=== PATIENT | male | born 1955 | race African-American/Black ===

== ENCOUNTER 2016-09-10 16:15 | Observation (INO) | payer OTHER ==
[~2016-09-10] VITALS: Ht 177.8 cm; Wt 125.0 kg
[~2016-09-10 16:15] MED LIST: AMLO10 PO; GLUC10TA3 PO; GLUCTAB PO; MAXZ PO; METO100T PO; NYST100010 TOP; SIMV20 PO; SULF1TAB47 PO
[2016-09-10 16:17] VITALS: BP 163/105; PULSE 90; RESP 14; TEMP 98; O2SAT 94
--- NOTE | 2016-09-10 17:42 | PD ---
HPI Chief Complaint: Edema Time Seen by Provider: 17:42 Travel History International Travel<30 days: No Contact w/Intl Traveler<30days: No Traveled to known affect area: No History of Present Illness HPI 60-year-old male with history of CAD, COPD, hypertension, presents to emergency department for evaluation of lower extremity swelling with worsening shortness of breath over the last week. Patient states that he was at the [facility] for a routine exam when they sent him to the emergency department for further evaluation. Patient states that about a week ago as they began to swell. He has noticed increased shortness of breath with activity. He states that he wakes up at night and sits up in order to catch his breath. Denies any recent illnesses, fever, or chills. He has no other symptoms to report at this time. PFSH Past Medical History Hx Anticoagulant Therapy: Yes (ASA 81MG) Arthritis: No Asthma: No Autoimmune Disease: No Blood Disorders: No Depression: No Heart Rhythm Problems: No Cancer: No Cardiovascular Problems: Yes (HTN) High Cholesterol: Yes (HIGH LIPIDS) Chemotherapy: No Chest Pain: No Congestive Heart Failure: No COPD: Yes Cerebrovascular Accident: No Diabetes: Yes Endocrine: No Gastrointestinal Disorders: No GERD: No Glaucoma: No Genitourinary: No Headaches: No Hepatitis: No Hiatal Hernia: No Hypertension: Yes (HYPERTENSION) Immune Disorder: No Kidney Stones: No Musculoskeletal: No Neurologic: No Psychiatric: No Reproductive: No Respiratory: No Migraines: No Myocardial Infarction: No Radiation Therapy: No Renal Failure: No Seizures: No Sickle Cell Disease: No Sleep Apnea: No Thyroid Disease: Yes (THYROIDECTOMY GOITER REMOVED) Ulcer: No Past Surgical History Abdominal Surgery: Yes (CHOLYCYSTECTOMY) AICD: No Appendectomy: No Arteriovenous Shunt: No Cardiac Surgery: No Cholecystectomy: Yes Ear Surgery: No Endocrine Surgery: No Eye Surgery: No Genitourinary Surgery: No Gynecologic Surgery: No Insulin Pump: No Joint Replacement: Yes (LEFT HIP REPLACEMENT) Oral Surgery: No Pacemaker: No Thoracic Surgery: No Social History Alcohol Use: No Tobacco Use: No Substance Use: No Allergies-Medications (Allergen,Severity, Reaction): Coded Allergies: Lisinopril (Verified Allergy, Severe, SWELLING, 09/10/16) Reported Meds & Prescriptions Reported Meds & Active Scripts Active Reported Zocor (Simvastatin) 20 Mg Tab 20 Mg PO HS Metoprolol Tartrate 100 Mg Tab 100 Mg PO BID Metformin ER (Metformin HCl) 500 Mg Maggie 500 Mg PO BID With evening meal Glipizide 10 Mg Tab 10 Mg PO DAILY Take 30 minutes before a meal Norvasc (Amlodipine Besylate) 10 Mg Tab 10 Mg PO DAILY Review of Systems Except as stated in HPI: all other systems reviewed are Neg Physical Exam Narrative GENERAL: Well-nourished male patient in no acute distress SKIN: Warm and dry. HEAD: Atraumatic. Normocephalic. EYES: Pupils equal and round. No scleral icterus. No injection or drainage. ENT: No nasal bleeding or discharge. Mucous membranes pink and moist. NECK: Trachea midline. No JVD. CARDIOVASCULAR: Regular rate and rhythm. No murmur appreciated. RESPIRATORY: No accessory muscle use. Clear to auscultation. Breath sounds equal bilaterally. GASTROINTESTINAL: Abdomen soft, non-tender, nondistended. Hepatic and splenic margins not palpable. MUSCULOSKELETAL: No obvious deformities. No clubbing. No cyanosis. 2+ bilateral lower extremity edema NEUROLOGICAL: Awake and alert. No obvious cranial nerve deficits. Motor grossly within normal limits. Normal speech. PSYCHIATRIC: Appropriate mood and affect; insight and judgment normal. Data Data Last Documented VS Vital Signs Date Time Temp Pulse Resp B/P Pulse Ox O2 Delivery O2 Flow Rate FiO2 09/10/16 20:44 90 16 98 Room Air 09/10/16 16:17 98.0 163/105 Orders Electrocardiogram (09/10/16 17:41) Basic Metabolic Panel (Bmp) (09/10/16 17:41) B-Type Natriuretic Peptide (09/10/16 17:41) Ckmb (Isoenzyme) Profile (09/10/16 17:41) Complete Blood Count With Diff (09/10/16 17:41) Magnesium (Mg) (09/10/16 17:41) Prothrombin Time / Inr (Pt) (09/10/16 17:41) Act Partial Throm Time (Ptt) (09/10/16 17:41) Troponin I (09/10/16 17:41) Chest, Single Ap (09/10/16 17:41) CKMB (09/10/16 18:41) CKMB% (09/10/16 18:41) Ecg Monitoring (09/10/16 20:21) Bilateral Bp Monitoring (09/10/16 20:21) Iv Access Insert/Monitor (09/10/16 20:21) Oximetry (09/10/16 20:21) Oxygen Administration (09/10/16 20:21) Sodium Chloride 0.9% Flush (Ns Flush) (09/10/16 20:30) Furosemide Inj (Lasix Inj) (09/10/16 20:30) Nitroglycerin 2% Oint (Nitroglycerin 2% (09/10/16 20:30) Diet Heart Healthy (09/11/16 Dinner) Labs Laboratory Tests Test 09/10/16 18:41 White Blood Count 8.0 TH/MM3 Red Blood Count 4.54 MIL/MM3 Hemoglobin 12.8 GM/DL Hematocrit 38.6 % Mean Corpuscular Volume 85.1 FL Mean Corpuscular Hemoglobin 28.3 PG Mean Corpuscular Hemoglobin 33.2 % Concent Red Cell Distribution Width 15.1 % Platelet Count 187 TH/MM3 Mean Platelet Volume 9.4 FL Neutrophils (%) (Auto) 66.8 % Lymphocytes (%) (Auto) 21.0 % Monocytes (%) (Auto) 9.7 % Eosinophils (%) (Auto) 2.3 % Basophils (%) (Auto) 0.2 % Neutrophils # (Auto) 5.3 TH/MM3 Lymphocytes # (Auto) 1.7 TH/MM3 Monocytes # (Auto) 0.8 TH/MM3 Eosinophils # (Auto) 0.2 TH/MM3 Basophils # (Auto) 0.0 TH/MM3 CBC Comment DIFF FINAL Differential Comment Prothrombin Time 11.3 SEC Prothromb Time International 1.0 RATIO Ratio Activated Partial 30.6 SEC Thromboplast Time Sodium Level 140 MEQ/L Potassium Level 3.7 MEQ/L Chloride Level 102 MEQ/L Carbon Dioxide Level 30.7 MEQ/L Anion Gap 7 MEQ/L Blood Urea Nitrogen 17 MG/DL Creatinine 1.14 MG/DL Estimat Glomerular Filtration 79 ML/MIN Rate Random Glucose 77 MG/DL Calcium Level 8.7 MG/DL Magnesium Level 1.9 MG/DL Total Creatine Kinase 657 U/L Creatine Kinase MB 4.4 NG/ML Creatine Kinase MB % 0.7 % Troponin I 0.06 NG/ML B-Type Natriuretic Peptide 302 PG/ML MDM Medical Decision Making Medical Screen Exam Complete: Yes Emergency Medical Condition: Yes Medical Record Reviewed: Yes Differential Diagnosis COPD exacerbation versus acute CHF versus ACS versus pneumonia versus influenza Narrative Course 60-year-old male presents to emergency department for evaluation. Workup was initiated in triage. Once a medical bed becomes available, patient will be transferred and care assumed by that provider. Condition: Stable Ashely Mendoza Sep 10, 2016 17:42
--- NOTE | 2016-09-10 18:49 | RADRPT ---
EXAM DATE/TIME: 09/10/2016 18:01 [place] COMPARISON: No previous studies available for comparison. INDICATIONS: Shortness of breath and bilateral feet swelling. MEDICAL HISTORY: None. SURGICAL HISTORY: None. ENCOUNTER: Initial ACUITY: 2 days PAIN SCORE: 0/10 LOCATION: Bilateral chest FINDINGS: The heart size is enlarged. The lungs are clear. No effusion is seen. There does appear to be some degenerative change at the right glenohumeral joint. CONCLUSION: Cardiomegaly. Oniel Corrales MD on September 10, 2016 at 18:35 Board Certified Radiologist. This report was verified electronically.
[2016-09-10 18:52] LABS: AUTOMATED NEUTROPHIL # 5.3 TH/MM3 (1.8-7.7); BASOPHIL % 0.2 % (0.0-2.0); EOSINOPHIL # 0.2 TH/MM3 (0-0.4); EOSINOPHIL % 2.3 % (0.0-4.0); HEMATOCRIT 38.6 % (39.0-51.0); HEMO FLAGS DIFF FINAL; LYMPHOCYTE # 1.7 TH/MM3 (1.0-4.8); MEAN CELL VOLUME 85.1 FL (80.0-100.0); MEAN CORPUSCULAR HEMOGLOBIN 28.3 PG (27.0-34.0); MEAN CORPUSCULAR HGB CONC 33.2 % (32.0-36.0); MONO % 9.7 % (0.0-8.0); NEUT % 66.8 % (16.0-70.0); PLATELET COUNT 187 TH/MM3 (150-450); RED BLOOD COUNT 4.54 MIL/MM3 (4.50-5.90); RED CELL DISTRIBUTION WIDTH 15.1 % (11.6-17.2)
[2016-09-10 19:04] LABS: APTT (PATIENT) 30.6 SEC (24.3-30.1); PROTHROMBIN TIME - PATIENT 11.3 SEC (9.8-11.6)
[2016-09-10 19:12] LABS: BICARBONATE 30.7 MEQ/L (21.0-32.0); MAGNESIUM 1.9 MG/DL (1.5-2.5); POTASSIUM 3.7 MEQ/L (3.5-5.1)
[2016-09-10 19:28] LABS: CKMB 4.4 NG/ML (0.5-3.6)
--- NOTE | 2016-09-10 20:28 | PD ---
Physical Exam Date Seen by Provider: Sep 10, 2016 Time Seen by Provider: 20:24 Narrative 60-year-old Afro[place] [facility], increased shortness of breath with exertion, and orthopnea over the past 7-10 days. Patient was seen in triage by Ashely CAMEJO, and EKG, cardiac labs, and proBNP were ordered. Chest x-ray was performed as well. She was moved to [place] [id number] and I assumed care of the patient. Data Data Last Documented VS Vital Signs Date Time Temp Pulse Resp B/P Pulse Ox O2 Delivery O2 Flow Rate FiO2 09/10/16 20:44 90 16 98 Room Air 09/10/16 16:17 98.0 163/105 Orders Electrocardiogram (09/10/16 17:41) Basic Metabolic Panel (Bmp) (09/10/16 17:41) B-Type Natriuretic Peptide (09/10/16 17:41) Ckmb (Isoenzyme) Profile (09/10/16 17:41) Complete Blood Count With Diff (09/10/16 17:41) Magnesium (Mg) (09/10/16 17:41) Prothrombin Time / Inr (Pt) (09/10/16 17:41) Act Partial Throm Time (Ptt) (09/10/16 17:41) Troponin I (09/10/16 17:41) Chest, Single Ap (09/10/16 17:41) CKMB (09/10/16 18:41) CKMB% (09/10/16 18:41) Ecg Monitoring (09/10/16 20:21) Bilateral Bp Monitoring (09/10/16 20:21) Iv Access Insert/Monitor (09/10/16 20:21) Oximetry (09/10/16 20:21) Oxygen Administration (09/10/16 20:21) Sodium Chloride 0.9% Flush (Ns Flush) (09/10/16 20:30) Furosemide Inj (Lasix Inj) (09/10/16 20:30) Nitroglycerin 2% Oint (Nitroglycerin 2% (09/10/16 20:30) Diet Heart Healthy (09/11/16 Dinner) Admit Order (Ed Use Only) (09/10/16 21:10) Labs Laboratory Tests Test 09/10/16 18:41 White Blood Count 8.0 TH/MM3 Red Blood Count 4.54 MIL/MM3 Hemoglobin 12.8 GM/DL Hematocrit 38.6 % Mean Corpuscular Volume 85.1 FL Mean Corpuscular Hemoglobin 28.3 PG Mean Corpuscular Hemoglobin 33.2 % Concent Red Cell Distribution Width 15.1 % Platelet Count 187 TH/MM3 Mean Platelet Volume 9.4 FL Neutrophils (%) (Auto) 66.8 % Lymphocytes (%) (Auto) 21.0 % Monocytes (%) (Auto) 9.7 % Eosinophils (%) (Auto) 2.3 % Basophils (%) (Auto) 0.2 % Neutrophils # (Auto) 5.3 TH/MM3 Lymphocytes # (Auto) 1.7 TH/MM3 Monocytes # (Auto) 0.8 TH/MM3 Eosinophils # (Auto) 0.2 TH/MM3 Basophils # (Auto) 0.0 TH/MM3 CBC Comment DIFF FINAL Differential Comment Prothrombin Time 11.3 SEC Prothromb Time International 1.0 RATIO Ratio Activated Partial 30.6 SEC Thromboplast Time Sodium Level 140 MEQ/L Potassium Level 3.7 MEQ/L Chloride Level 102 MEQ/L Carbon Dioxide Level 30.7 MEQ/L Anion Gap 7 MEQ/L Blood Urea Nitrogen 17 MG/DL Creatinine 1.14 MG/DL Estimat Glomerular Filtration 79 ML/MIN Rate Random Glucose 77 MG/DL Calcium Level 8.7 MG/DL Magnesium Level 1.9 MG/DL Total Creatine Kinase 657 U/L Creatine Kinase MB 4.4 NG/ML Creatine Kinase MB % 0.7 % Troponin I 0.06 NG/ML B-Type Natriuretic Peptide 302 PG/ML [facility] Medical Record Reviewed: Yes Supervised Visit with YEN: Yes Differential Diagnosis CHF. Fluid overload. Renal insufficiency. Cardiac syndrome. Narrative Course Patient is medically stable at time of exam. EKG is reviewed showing sinus rhythm at [address] changes. Labs are reviewed showing CBC with mild anemia with hemoglobin 12.8 and hematocrit of 38.6. Electrolytes normal. Creatinine kinase Elevated at 657. CK-MB Is Elevated at 4.4. Troponin Is Slightly Elevated 0.06. BNP Is 302. Coags show PT of 11.3, INR 1.0, PTT 30.6. Patient discussed with Dr. Wood. IV is ordered, and patient is given 40 mg Lasix IV as well as 1 inch of nitroglycerin paste. Call is placed to the hospitalist at 2030 hrs. Patient is felt to be stable at this time. Patient discussed with Dr. Sebastian. Patient will be admitted under Dr. Smith to observation. Diagnosis Primary Impression: Elevated troponin Additional Impressions: SOB (shortness of breath) on exertion Pedal edema Admitting Information Admitting Physician Requests: Admit Condition: Stable Lazaro Ocasio Sep 10, 2016 20:28
[2016-09-10] MEDS ORDERED: SODIUM CHLORIDE 0.9% FLUSH 5 ML FLUSH IVF PRN (20:30)
[2016-09-10] MEDS ORDERED: NITROGLYCERIN 2% OINT 1 GM PACKET TOP ONE (20:30)
[2016-09-10] MEDS ORDERED: FUROSEMIDE 40 MG/4 ML VIAL IV PUSH ONE (20:30)
[2016-09-10] MEDS ORDERED: GLIP10TA6 PO (20:44)
[2016-09-10] MEDS ORDERED: METO100T PO (20:44)
[2016-09-10] MEDS ORDERED: ZOCO20TA PO (20:44)
[2016-09-10] MEDS ORDERED: METF500T4 PO (20:44)
[2016-09-10] MEDS ORDERED: AMLO10 PO (20:44)
[2016-09-10 21:20] VITALS: BP 140/84; PULSE 77; RESP 16; O2SAT 96
[2016-09-10] MEDS ORDERED: BISACODYL 10 MG SUPP PR PRN (21:30)
[2016-09-10] MEDS ORDERED: NALOXONE HCL 0.4 MG/ML AMP IV PRN (21:30)
[2016-09-10] MEDS ORDERED: SODIUM CHLORIDE 0.9% FLUSH 5 ML FLUSH FLUSH PRN (21:30)
[2016-09-10] MEDS ORDERED: ENOXAPARIN SODIUM 40 MG/0.4 ML SYRINGE SQ SCH (21:30)
[2016-09-10] MEDS ORDERED: ACETAMINOPHEN 325 MG TAB PO PRN (21:30)
[2016-09-10] MEDS: NITROGLYCERIN 2% OINT 1 GM PACKET TOPICAL SCH (22:00)
--- NOTE | 2016-09-10 22:01 | HHI.HP ---
HPI Service CP Hospitalists Primary Care Physician [facility] Admission Diagnosis elevated troponin/pedal edema Chief Complaint: Patient sent by [place] for lower extremity edema Travel History International Travel<30 Days: No Contact w/Intl Traveler <30 Da: No Traveled to Known Affected Are: No History of Present Illness 60 y/o black male with hx of CAD,COPD,hypertension,diabetes who has had for last 10 days increasing edema lower extremities and has had some shortness of breath but not severe ,denies any chest pain ,nausea or vomit. Patient states at one time was on diuretic but they were stopped about 1 year ago. On evaluation in er found to have elevated troponin level and CPK ekg showed no acute changes and had elevated BNP ,patient will be admitted for diuresis and follow up labs and as he has cardiac history will get cardiac consult and 2d echo . For now no angel as he had allergic reaction and i am not sure if he had any problems with ARB. Review of Systems Respiratory: COMPLAINS OF: Shortness of breath Cardiovascular: COMPLAINS OF: Lower Extremity Edema Past Family Social History Past Medical History hypertension,hyperlipidemia,COPD,diabetes CAD Past Surgical History thyroidectomy for goiter,gallbladder left hip Reported Medications zocor 20,metoprolol 100 bid,metformin 500 bid glipizide 10,norvasc 10 Allergies: Coded Allergies: Lisinopril (Verified Allergy, Severe, SWELLING, 09/10/16) Social History NS,ND Physical Exam Vital Signs Vital Signs Date Time Temp Pulse Resp B/P Pulse Ox O2 Delivery O2 Flow Rate FiO2 09/10/16 20:44 90 16 98 Room Air 09/10/16 16:17 98.0 90 14 163/105 94 Room Air Physical Exam GENERAL: This is a well-nourished, well-developed patient, in no apparent distress. SKIN: No rashes, ecchymoses or lesions. Cool and dry. HEAD: Atraumatic. Normocephalic. No temporal or scalp tenderness. EYES: Pupils equal round and reactive. Extraocular motions intact. No scleral icterus. No injection or drainage. ENT: Nose without bleeding, purulent drainage or septal hematoma. Throat without erythema, tonsillar hypertrophy or exudate. Uvula midline. Airway patent. NECK: Trachea midline. No JVD or lymphadenopathy. Supple, nontender, no meningeal signs. CARDIOVASCULAR: Regular rate and rhythm without murmurs, gallops, or rubs. RESPIRATORY: Clear to auscultation. Breath sounds equal bilaterally. No wheezes , rales, or rhonchi. GASTROINTESTINAL: Abdomen soft, non-tender, nondistended. No hepato-splenomegaly , or palpable masses. No guarding. MUSCULOSKELETAL: Extremities without clubbing, cyanosis, plus 2-3 edema. No joint tenderness, effusion, or edema noted. No calf tenderness. Negative Homans sign bilaterally. NEUROLOGICAL: Awake and alert. Cranial nerves II through XII intact. Motor and sensory grossly within normal limits. Five out of 5 muscle strength in all muscle groups. Normal speech. Laboratory Laboratory Tests Test 09/10/16 18:41 White Blood Count 8.0 Red Blood Count 4.54 Hemoglobin 12.8 Hematocrit 38.6 Mean Corpuscular Volume 85.1 Mean Corpuscular Hemoglobin 28.3 Mean Corpuscular Hemoglobin 33.2 Concent Red Cell Distribution Width 15.1 Platelet Count 187 Mean Platelet Volume 9.4 Neutrophils (%) (Auto) 66.8 Lymphocytes (%) (Auto) 21.0 Monocytes (%) (Auto) 9.7 Eosinophils (%) (Auto) 2.3 Basophils (%) (Auto) 0.2 Neutrophils # (Auto) 5.3 Lymphocytes # (Auto) 1.7 Monocytes # (Auto) 0.8 Eosinophils # (Auto) 0.2 Basophils # (Auto) 0.0 CBC Comment DIFF FINAL Differential Comment Prothrombin Time 11.3 Prothromb Time International 1.0 Ratio Activated Partial 30.6 Thromboplast Time Sodium Level 140 Potassium Level 3.7 Chloride Level 102 Carbon Dioxide Level 30.7 Anion Gap 7 Blood Urea Nitrogen 17 Creatinine 1.14 Estimat Glomerular Filtration 79 Rate Random Glucose 77 Calcium Level 8.7 Magnesium Level 1.9 Total Creatine Kinase 657 Creatine Kinase MB 4.4 Creatine Kinase MB % 0.7 Troponin I 0.06 B-Type Natriuretic Peptide 302 Result Diagram: 09/10/16 1841 09/10/16 1841 Imaging Last 24 hours Impressions Chest X-Ray 09/10/16 1741 Signed Impressions: Service Date/Time: Saturday, September 10, 2016 18:01 - CONCLUSION: Cardiomegaly. Oniel Corrales MD Course in er will receive lasix 40mg IV and NTG paste ekg NSR non specific st t wave changes Assessment and Plan Problem List: (1) Pedal edema Status: Acute Plan: progressive over 1 week or so continue lasix for 3 doses follow lyismael 2decho recheck bnp (2) Elevated troponin Status: Acute Plan: will recheck levels and ekg and will get cardiac consult am continue NTG paste for now (3) SOB (shortness of breath) on exertion Status: Chronic Plan: seems to be more chronic obtain 2d echo (4) Hypertension Status: Chronic Plan: continue home meds (5) Diabetes Status: Chronic Plan: continue home meds Assessment and Plan further plan as case progresses Code Status full Discussed Condition With patient and Truman Sebastian MD Sep 10, 2016 22:01
[2016-09-10 22:24] VITALS: BP 153/89; PULSE 73; RESP 14; O2SAT 92
[2016-09-10 23:54] VITALS: BP 144/91; PULSE 79; RESP 18; TEMP 98.6; O2SAT 98
[2016-09-11 00:21] VITALS: PULSE 78
[2016-09-11 03:03] VITALS: BP 143/88; PULSE 74; RESP 20; TEMP 97.1; O2SAT 97
[2016-09-11] MEDS: NITROGLYCERIN 2% OINT 1 GM PACKET TOPICAL SCH (06:00)
[2016-09-11 07:10] VITALS: BP 141/91; PULSE 77; RESP 20; TEMP 97.4; O2SAT 93
[2016-09-11 07:26] LABS: CKMB 3.2 NG/ML (0.5-3.6)
--- NOTE | 2016-09-11 07:52 | PD.CONS ---
HPI Service CV Consult Requested By Jaz Reason for Consult elevated troponin, hx of CAD Primary Care Physician [facility] History of Present Illness This is a 60 yo AAM with hx of CAD, ischemic cardiomyopathy EF 45% seen on echo 2016, HTN, COPD and DM who [facility]. Patient had reported progressive SOB with exertion over the past 10 days along with increased leg edema and orthopnea. He states PCP discontinued diuretic several months ago. Patient states he feels fine and isn't sure why he was sent to the hospital. He was started on IV lasix and currently feels well. He denies chest pain, SOB or palpitations. (Shauna Worthy) Review of Systems Consitutional: DENIES: Fatigue, Fever, Chills Respiratory: DENIES: Cough, Snoring, Shortness of breath, Wheezing Cardiovascular: DENIES: Chest pain, Palpitations, Syncope, Tachycardia Gastrointestinal: DENIES: Nausea, Vomiting (Shauna Worthy) Past Family Social History Allergies: Coded Allergies: Lisinopril (Verified Allergy, Severe, SWELLING, 09/10/16) Past Medical History HTN, COPD, CAD, ischemic CM, DM Past Surgical History cholecystectomy left hip replacement Reported Medications Zocor (Simvastatin) 20 Mg Tab 20 Mg PO HS Metoprolol Tartrate 100 Mg Tab 100 Mg PO BID Metformin ER (Metformin HCl) 500 Mg Maggie 500 Mg PO BID With evening meal Glipizide 10 Mg Tab 10 Mg PO DAILY Take 30 minutes before a meal Norvasc (Amlodipine Besylate) 10 Mg Tab 10 Mg PO DAILY Active Ordered Medications Current Medications Medications (Trade) Dose Ordered Sig/James Route Start Time Stop Time Status Last Admin (NS Flush) 2 ml UNSCH PRN IVF 09/10/16 20:30 09/10/16 21:07 (Norvasc) 10 mg DAILY PO 09/11/16 09:00 (Glucotrol) 10 mg DAILY PO 09/11/16 09:00 (Lopressor) 100 mg BID PO 09/11/16 09:00 (Glucophage) 500 mg BID PO 09/11/16 09:00 (Pravachol) 40 mg HS PO 09/11/16 21:00 (NS Flush) 2 ml UNSCH PRN FLUSH 09/10/16 21:30 (NS Flush) 2 ml BID FLUSH 09/11/16 09:00 (Tylenol) 650 mg Q8HR PRN PO 09/10/16 21:30 (Dulcolax Supp) 10 mg DAILY PRN [facility] 09/10/16 21:30 (Lovenox Inj) 40 mg Q24H SQ 09/10/16 21:30 09/10/16 23:10 (Narcan Inj) 0.4 mg UNSCH PRN IV 09/10/16 21:30 (Nitroglycerin 2% Oint) 1 inch Q8HR TOPICAL 09/10/16 22:00 (Lasix Inj) 20 mg BID@09,18 IV PUSH 09/11/16 09:00 Family History non-contributory Social History denies etoh, recreational drug use (Shauna Worthy) Physical Exam Vital Signs Vital Signs Date Time Temp Pulse Resp B/P Pulse Ox O2 Delivery O2 Flow Rate FiO2 09/11/16 07:10 97.4 77 20 141/91 93 09/11/16 03:03 97.1 74 20 143/88 97 09/11/16 00:21 78 09/10/16 23:54 98.6 79 18 144/91 98 09/10/16 22:24 73 14 153/89 92 Room Air 09/10/16 21:20 77 16 140/84 96 Room Air 09/10/16 20:44 90 16 98 Room Air 09/10/16 16:17 98.0 90 14 163/105 94 Room Air Physical Exam GENERAL: SKIN: Warm and dry. EYES: Pupils equal and round. No scleral icterus. No injection or drainage. NECK: Trachea midline. No JVD. CARDIOVASCULAR: Regular rate and rhythm. RESPIRATORY: No accessory muscle use. Clear to auscultation. Breath sounds equal bilaterally. GASTROINTESTINAL: Abdomen soft, non-tender, nondistended. Hepatic and splenic margins not palpable. MUSCULOSKELETAL: Lower legs 2+ edema. No obvious deformities. NEUROLOGICAL: Awake and alert. No obvious cranial nerve deficits. Motor grossly within normal limits. Normal speech. PSYCHIATRIC: Appropriate mood and affect; insight and judgment normal. Laboratory Laboratory Tests Test 09/10/16 09/11/16 18:41 06:16 White Blood Count 8.0 Red Blood Count 4.54 Hemoglobin 12.8 Hematocrit 38.6 Mean Corpuscular Volume 85.1 Mean Corpuscular Hemoglobin 28.3 Mean Corpuscular Hemoglobin 33.2 Concent Red Cell Distribution Width 15.1 Platelet Count 187 Mean Platelet Volume 9.4 Neutrophils (%) (Auto) 66.8 Lymphocytes (%) (Auto) 21.0 Monocytes (%) (Auto) 9.7 Eosinophils (%) (Auto) 2.3 Basophils (%) (Auto) 0.2 Neutrophils # (Auto) 5.3 Lymphocytes # (Auto) 1.7 Monocytes # (Auto) 0.8 Eosinophils # (Auto) 0.2 Basophils # (Auto) 0.0 CBC Comment DIFF FINAL Differential Comment Prothrombin Time 11.3 Prothromb Time International 1.0 Ratio Activated Partial 30.6 Thromboplast Time Sodium Level 140 Potassium Level 3.7 Chloride Level 102 Carbon Dioxide Level 30.7 Anion Gap 7 Blood Urea Nitrogen 17 Creatinine 1.14 Estimat Glomerular Filtration 79 Rate Random Glucose 77 Calcium Level 8.7 Magnesium Level 1.9 Total Creatine Kinase 657 573 Creatine Kinase MB 4.4 3.2 Creatine Kinase MB % 0.7 0.6 Troponin I 0.06 0.06 B-Type Natriuretic Peptide 302 256 (Shauna Worthy) Physical Exam 3/ holosystolic murmur (Minor,Rey Cade MD) Result Diagram: 09/10/16 1841 09/10/16 184 Imaging Last Impressions Chest X-Ray 09/10/16 1741 Signed Impressions: Service Date/Time: Saturday, September 10, 2016 18:01 - CONCLUSION: Cardiomegaly. Oniel Corrales MD (Shauna Worthy) Assessment and Plan Problem List: (1) SOB (shortness of breath) on exertion (2) Elevated troponin Assessment and Plan 60 yo AAM with hx of CAD, ischemic cardiomyopathy, COPD with progressively worsening SOB with exertion and lower leg edema x 10 days. Patient reports his PCP took him off diuretic several months ago, reason unclear. troponin elevation intermediate (0.06). ECG shows SR with non-specific T wave changes. CXR shows no evidence of HF. Last Echo 05/2016 shows EF unchanged 45%. Nuclear stress test last done 2013 showed old infarct no ischemia. CK elevated (573), mild anemia, O2 93%. Currently taking amlodipine 10mg daily, metoprolol 100mg BID. (Shauna Worthy) Assessment and Plan agree with above. mild CHF. restart diuretic. ISMAEL hose for leg edema. + murmur - last echo mild-mod MR. repeat echo for EF and valve dz. intermediate troponin but no CP. prior SPECT showed infarct, no ischemia. No need for stress test now. DC amlodipine for edema. allergy to ACEi, severe. no JANE or ARB due to allergy. start hydralazine. switch to coreg (Rey Morocho MD) Shauna Worthy Sep 11, 2016 07:52 Rey Morocho MD Sep 11, 2016 08:05
[2016-09-11] MEDS ORDERED: CARVEDILOL 12.5 MG TAB PO SCH (09:00)
[2016-09-11] MEDS ORDERED: metFORMIN HCL 500 MG TAB PO SCH (09:00)
[2016-09-11] MEDS ORDERED: METOPROLOL TARTRATE 100 MG TAB PO SCH (09:00)
[2016-09-11] MEDS ORDERED: SODIUM CHLORIDE 0.9% FLUSH 5 ML FLUSH FLUSH SCH (09:00)
[2016-09-11] MEDS ORDERED: glipiZIDE 10 MG TAB PO SCH (09:00)
[2016-09-11] MEDS ORDERED: FUROSEMIDE 20 MG/2 ML VIAL IV PUSH SCH (09:00)
[2016-09-11 10:55] VITALS: BP 115/71; PULSE 71; RESP 18; TEMP 97.7; O2SAT 96
[2016-09-11 11:16] VITALS: PULSE 71
[2016-09-11] MEDS ORDERED: hydrALAZINE HCL 50 MG TAB PO SCH (14:00)
[2016-09-11 15:18] VITALS: BP 136/77; PULSE 76; RESP 18; TEMP 98.3; O2SAT 98
--- NOTE | 2016-09-11 15:24 | EC ---
Study Study Date:09/11/2016 STUDY CONCLUSIONS SUMMARY - Left ventricle: The cavity size was dilated. Wall thickness was normal. Systolic function was moderately reduced by visual assessment. The estimated ejection fraction was in the range of 35% to 40%. Diffuse hypokinesis. - Aortic valve: Valve area: 3.49cm^2(VTI). Valve area: 3.25cm^2 (Vmax). - Mitral valve: Moderate regurgitation. - Left atrium: The atrium was moderately dilated. - Tricuspid valve: Mild-moderate regurgitation. - Pulmonary arteries: Systolic pressure was mildly increased. PA peak pressure: 41mm Hg (S). If LV function is below 40, please consider prescribing an ACEI or ARB or document rationale for non-use. PROCEDURE DATA STUDY STATUS: Elective. Procedure: Transthoracic echocardiography. Image quality was good. Scanning was performed from the parasternal, apical, and subcostal acoustic windows. Study completion: The patient tolerated the procedure well. Transthoracic echocardiography. M-mode, complete 2D, complete spectral Doppler, and color Doppler. Height: Height: 70in. Weight: Weight: 274.4lb. Body mass index: BMI: 39.5kg/m^2. Body surface area: BSA: 2.39m^2. Patient status: Inpatient. CARDIAC ANATOMY LEFT VENTRICLE: The cavity size was dilated. Wall thickness was normal. Systolic function was moderately reduced by visual assessment. The estimated ejection fraction was in the range of 35% to 40%. Diffuse hypokinesis. AORTIC VALVE: Trileaflet; normal thickness leaflets. Doppler: Transvalvular velocity was within the normal range. There was no stenosis. No regurgitation. Valve area: 3.49cm^2(VTI). Indexed valve area: 1.46cm^2/m^2 (VTI). Valve area: 3.25cm^2 (Vmax). Indexed valve area: 1.36cm^2/m^2 (Vmax). Mean gradient: 3mm Hg (S). AORTA: Aortic root: The aortic root was trivially dilated. MITRAL VALVE: Mildly thickened leaflets, . Doppler: Transvalvular velocity was within the normal range. There was no evidence for stenosis. Moderate regurgitation. Peak gradient: 3mm Hg (D). LEFT ATRIUM: The atrium was moderately dilated. RIGHT VENTRICLE: The cavity size was normal. Wall thickness was normal. PULMONIC VALVE: Doppler: Transvalvular velocity was within the normal range. There was no evidence for stenosis. No regurgitation. TRICUSPID VALVE: Structurally normal valve. Doppler: Transvalvular velocity was within the normal range. Mild-moderate regurgitation. PULMONARY ARTERY: Systolic pressure was mildly increased. RIGHT ATRIUM: The atrium was normal in size. PERICARDIUM: There was no pericardial effusion. SYSTEMIC VEINS: Inferior vena cava: The vessel was normal in size. Patient weight: 274.4lb _Ejection fraction:_ 65-75% _Fractional shortening:_ 32% up to 5Kg 5-11.5Kg 11.6-22.9Kg 23-45Kg 45-57Kg Aortic Root 7-13 <17 13-22 17-27 17-27 LA diam 6-13 <23 24-38 33-47 37-40 RVID 10-17 7-15 7-15 7-18 8-17 LVIDd 12-22 <32 24-38 33-47 37-40 LVPW 2-4 3-6 5-7 6-8 7-8 IVS 2-4 3-6 5-7 6-8 7-8 BASIC MEASUREMENTS ADULT NORMAL Left ventricle LV internal dimension, ED, chordal *71.8 mm 43-52 level, PLAX LV internal dimension, ES, chordal *64.6 mm 23-38 level, PLAX Fractional shortening, chordal level, *10 % >29 PLAX LV posterior wall thickness, ED 9.35 mm IVS/LVPW ratio, ED 0.99 <1.3 Volume, ED, MOD, 1-plane 281 ml Volume, ES, MOD, 1-plane 189 ml Ejection fraction, MOD, 1-plane 33 % Stroke volume, MOD, 1-plane 92 ml Volume index, ED, MOD, 1-plane 118 ml/m^2 Volume index, ES, MOD, 1-plane 79 ml/m^2 Stroke index, MOD, 1-plane 38.5 ml/m^2 Volume, ED, MOD, 2-plane 270 ml Volume, ES, MOD, 2-plane 177 ml Ejection fraction, MOD, 2-plane 34 % Stroke volume, MOD, 2-plane 93 ml Volume index, ED, MOD, 2-plane 113 ml/m^2 Volume index, ES, MOD, 2-plane 74 ml/m^2 Stroke index, MOD, 2-plane 38.9 ml/m^2 Ventricular septum Septal thickness, ED 9.3 mm Aortic valve Leaflet separation 23 mm 15-26 Aorta Root diameter, ED 39 mm Left atrium Anterior-posterior dimension 47 mm Anterior-posterior dimension index 1.97 cm/m^2 <2.2 BASIC MEASUREMENTS ADULT NORMAL Aortic valve Leaflet separation 23 mm 15-26 DOPPLER MEASUREMENTS ADULT NORMAL Main pulmonary artery Pressure, S *41 mm Hg =30 Aortic valve Peak velocity, S 131 cm/s Mean velocity, S 83.6 cm/s VTI, S 22.6 cm Mean gradient, S 3 mm Hg Valve area, VTI 3.49 cm^2 Valve area index, VTI 1.46 cm^2/m^2 Valve area, Vmax 3.25 cm^2 Valve area index, Vmax 1.36 cm^2/m^2 Mitral valve Peak E-wave velocity 80 cm/s Peak A-wave velocity 42.9 cm/s Deceleration time *130 ms 150-230 Peak gradient, D 3 mm Hg Peak E/A ratio 1.9 Tricuspid valve Regurgitant peak velocity 254 cm/s Peak RV-RA gradient, S 26 mm Hg Maximal regurgitant velocity 254 cm/s Systemic veins Estimated CVP 5 mm Hg Right ventricle RV pressure, S *43 mm Hg <30 Pulmonic valve Peak velocity, S 69.2 cm/s LEGEND: Mean values are shown as u=mean value. Asterisk (*) palumbo values outside specified normal range. Prepared and signed by Rey Morocho [id number]
--- NOTE | 2016-09-11 15:58 | EKG ---
Date Performed: 09/11/2016 Time Performed: 06:23:00 PTAGE: 60 years EKG: Sinus rhythm MODERATE INTRAVENTRICULAR CONDUCTION DELAY NONSPECIFIC T-WAVE ABNORMALITY Compared to prior tracing no significant change BORDERLINE ECG NO PREVIOUS TRACING DOCTOR: Freedom Michel Interpretating Date/Time 09/11/2016 15:55:49
--- NOTE | 2016-09-11 15:58 | EKG ---
Date Performed: 09/10/2016 Time Performed: 18:21:07 PTAGE: 60 years EKG: Sinus rhythm MODERATE INTRAVENTRICULAR CONDUCTION DELAY NONSPECIFIC T-WAVE ABNORMALITY Compared to prior tracing no significant change BORDERLINE ECG PREVIOUS TRACING : 09/10/2016 18.20 DOCTOR: Freedom Michel Interpretating Date/Time 09/18/2016 07:20:12
[2016-09-11] MEDS ORDERED: POTA-163 PO (16:14)
[2016-09-11] MEDS ORDERED: FURO1TAB60 PO (16:14)
--- NOTE | 2016-09-11 16:20 | HHI.PR ---
Subjective Remarks SOB and edema improved from admission Objective Vitals Vital Signs Date Time Temp Pulse Resp B/P Pulse Ox O2 Delivery O2 Flow Rate FiO2 09/11/16 15:18 98.3 76 18 136/77 98 09/11/16 11:16 71 09/11/16 10:55 97.7 71 18 115/71 96 09/11/16 07:10 97.4 77 20 141/91 93 09/11/16 03:03 97.1 74 20 143/88 97 09/11/16 00:21 78 09/10/16 23:54 98.6 79 18 144/91 98 09/10/16 22:24 73 14 153/89 92 Room Air 09/10/16 21:20 77 16 140/84 96 Room Air 09/10/16 20:44 90 16 98 Room Air Result Diagram: 09/10/16 1841 09/10/16 1841 Imaging Last 24 hours Impressions Chest X-Ray 09/10/16 1741 Signed Impressions: Service Date/Time: Saturday, September 10, 2016 18:01 - CONCLUSION: Cardiomegaly. Oniel Corrales MD A/P Problem List: (1) Systolic CHF, acute on chronic Status: Acute Plan: - echocardiogram (09/11/16) EF 35-40% - Case d/w Dr. Morocho (09/11/16) - Pt clinically improved with diuresis - PO lasix 40mg daily with KCL - f/u with PCP in 1 week - f/u with Cardiology, Dr. Morocho in 2 weeks (2) Elevated troponin Status: Acute Plan: - elevated troponin d/t CHF - pt seen by Cardiology (3) Hypertension Status: Chronic Plan: continue home meds (4) Diabetes Status: Chronic Plan: continue home meds Todd Smith DO Sep 11, 2016 16:20
[2016-09-11] MEDS ORDERED: PRAVASTATIN SOD 40 MG TAB PO SCH (21:00)
== END 2016-09-11 17:32 | disposition home or self-care (01) ==
LOC: NEPE 16:15 → NEDA 21:14 → NEPHCDU 23:49
PROVIDERS: ADMIT Hospitalist; ATTEND Hospitalist
DX: R60.0 Localized edema (principal); R74.8 Abnormal levels of other serum enzymes; R06.02 Shortness of breath; J44.9 Chronic obstructive pulmonary disease, unspecified; I10 Essential (primary) hypertension; E11.59 Type 2 diabetes mellitus with other circulatory complications; I25.10 Atherosclerotic heart disease of native coronary artery without angina pectoris; Z79.82 Long term (current) use of aspirin; E78.00 Pure hypercholesterolemia, unspecified; Z79.899 Other long term (current) drug therapy; Z79.84 Long term (current) use of oral hypoglycemic drugs; D64.9 Anemia, unspecified; I25.5 Ischemic cardiomyopathy; Z96.642 Presence of left artificial hip joint; R94.31 Abnormal electrocardiogram [ECG] [EKG]
CPT/HCPCS: 71010; 80048; 82550; 82552; 82948; 83735; 83880; 84484; 85025; 85610; 85730; 93005; 93306; 96374; 99285; G0378; J1650; J1940